=== PATIENT | female | born 1970 | race Caucasian/White ===

== ENCOUNTER 2018-10-08 08:05 | Outpatient (CLI) | payer BC, SELFPAY ==
[2018-10-08 09:22] LABS: Cholesterol 203 mg/dL (50-200); HDL Cholesterol 79 mg/dL (40-60); LDL CHOLESTEROL 111 mg/dL (<100); Triglyceride 59 mg/dL (30-150)
== END 2018-10-08 08:25 ==
PROVIDERS: PCP Registered Nurse; Visit Provider Registered Nurse
DX: Z00.00 Encounter for general adult medical examination without abnormal findings (principal); Z13.220 Encounter for screening for lipoid disorders
CPT/HCPCS: 36415; 80061; 83721

== ENCOUNTER 2020-10-28 15:29 | Emergency (ER) | payer BC, SELFPAY ==
[2020-10-28] VITALS (15 sets, daily range): BP systolic 101–145; BP diastolic 56–99; PULSE 69–90; RESP 10–21; TEMP 36.5; O2SAT 95–100
--- NOTE | 2020-10-28 15:30 | RT.EKG_ITS ---
APPROVED REPORT Exam: Resting ECG Reason for Exam: dizziness Patient Location: E HR:76 bpm ECG Measurements Heart Rate 76 AXIS LA 148 P -88 QRSd 103 QRS 60 QT 395 T 8 QTc 443 Conclusion Sinus or ectopic atrial rhythm...P axis (-45,135). No STEMI. I have reviewed and interpreted ECG and agree with software generated interpretation.
--- NOTE | 2020-10-28 15:30 | W.ED.GENAD ---
Discharge Plan Disposition Patient Disposition: HOME Condition: Improving Discharge Details Clinical Impression: Vomiting, Dizziness Primary Care Provider: Des Pop ED Provider: Kaya Gómez Home Meds and New Rx's Prescriptions: New ondansetron 4 mg tablet,disintegrating 4 mg PO TID PRN (Reason: nausea and vomiting) Qty: 6 RF: 0 Continued loratadine [Claritin] 10 MG tablet 10 mg PO PRN Qty: 1 RF: 0 sertraline [Zoloft] 25 mg Tablet 25 mg PO DAILY RF: 0 Discharge Instructions Instructions: Acute Nausea and Vomiting (ED), Dizziness (ED) Additional Instructions: Take your Pepcid that you have at home once daily for the next 2 weeks. Take the Zofran as needed directed for nausea and vomiting. Follow-up with your primary care doctor in 1 week. Return to the emergency department with any worsening or new concerning symptoms such as fever, persistent vomiting, abdominal pain or any other concerns. Discharge Data Discharge Physician: Kaya Gómez Medical Decision Making [id number] -- 50-year-old female presents with vomiting since last night. She drank 8 twisted teas and one buzz ball yesterday. EKG on arrival notes a rate of 76, sinus, no STEMI, non-diagnostic. Patient appears anxious and hyperventilating on my evaluation. Blood pressure hypertensive at 145/99. She is afebrile and appears nontoxic. Suspect most likely vomiting in the setting of GI related illness, possibly secondary to alcohol. Do not see indication for imaging as she denies any abdominal pain and is only tender in her epigastrium which would be expected and vomiting. We will place an IV, bolus IV fluids, screening labs, chest x-ray and give Pepcid, Zofran IV and GI cocktail and reassess. Labs and imaging reviewed and unremarkable. Normal white blood cell count. Normal electrolytes. Normal troponin. Normal lipase. Alcohol level 5. Chest x-ray negative. Patient reassessed and she states she feels much better. She was able to drink leann frank and eat crackers and denies any nausea or seen. She was able to ambulate without dizziness. Patient felt good to go home. Disposition decision made weighing the risks and benefits of hospitalization versus outpatient treatment, the risk for further decompensation, and the patient's wishes. Advised to follow up with the primary care doctor for re-evaluation. Usual and customary return precautions given prior to discharge. Medical Records Medical records reviewed: Yes I reviewed the patient's medical records. Lab Data Lab results reviewed: Yes I reviewed the patient's lab results. Labs: Laboratory Tests Range/Units 10/28/20 10/28/20 10/28/20 15:40 15:40 15:40 WBC (4.4-10.8) 10^3/uL 5.19 RBC (3.93-5.22) 10^6/uL 4.12 Hgb (11.2-15.7) g/dL 13.4 Hct (36.0-46.0) % 39.1 MCV (80-95) fL 94.9 MCH (27.0-33.0) pg 32.5 MCHC (32.0-36.0) % 34.3 RDW (11.7-14.6) % 13.6 Plt Count (130-400) 10^3/uL 362 MPV (8.0-11.0) fL 8.6 Immature Gran % 0.6 Neutrophils % 72.2 Lymphocytes % 22.0 Monocytes % 4.2 Eosinophils % 0.8 Basophils % 0.2 Nucleated RBC % % 0 Absolute Neutrophils (1.2-6.7) 10^3/uL 3.75 Absolute Lymphocytes (1.2-3.4) 10^3/uL 1.14 L Absolute Monocytes (0.1-0.8) 10^3/uL 0.22 Absolute Eosinophils (0.0-0.7) 10^3/uL 0.04 Absolute Basophils (0.0-0.2) 10^3/uL 0.01 PT (9.3-11.0) sec 9.3 INR (0.9-1.1) 0.9 APTT (21.0-27.5) sec 23.0 Sodium (136-145) mmol/L 140 Potassium (3.5-5.1) mmol/L 3.6 Chloride (98-107) mmol/L 105 Carbon Dioxide (21.0-32.0) mmol/L 26.5 Anion Gap (3-11) mmol/L 8.5 BUN (7-18) mg/dL 11 Creatinine (0.55-1.02) mg/dL 0.8 Estimated GFR/1.73 m2 (mL/min/1.73m2) >= 60.00 Glucose (74-106) mg/dL 105 Calcium (8.5-10.1) mg/dL 9.5 Magnesium (1.8-2.4) mg/dL 2.1 Total Bilirubin (0.2-1.0) mg/dL 0.4 AST (15-37) U/L 20 ALT (14-59) U/L 25 Alkaline Phosphatase (46-116) U/L 97 Troponin I (<0.06) ng/mL < 0.05 Total Protein (6.4-8.2) g/dL 8.6 H Albumin (3.4-5.0) g/dL 4.1 Lipase (73-393) U/L 62 Ethyl Alcohol (<3) mg/dL Range/Units 10/28/20 15:40 WBC (4.4-10.8) 10^3/uL RBC (3.93-5.22) 10^6/uL Hgb (11.2-15.7) g/dL Hct (36.0-46.0) % MCV (80-95) fL MCH (27.0-33.0) pg MCHC (32.0-36.0) % RDW (11.7-14.6) % Plt Count (130-400) 10^3/uL MPV (8.0-11.0) fL Immature Gran % Neutrophils % Lymphocytes % Monocytes % Eosinophils % Basophils % Nucleated RBC % % Absolute Neutrophils (1.2-6.7) 10^3/uL Absolute Lymphocytes (1.2-3.4) 10^3/uL Absolute Monocytes (0.1-0.8) 10^3/uL Absolute Eosinophils (0.0-0.7) 10^3/uL Absolute Basophils (0.0-0.2) 10^3/uL PT (9.3-11.0) sec INR (0.9-1.1) APTT (21.0-27.5) sec Sodium (136-145) mmol/L Potassium (3.5-5.1) mmol/L Chloride (98-107) mmol/L Carbon Dioxide (21.0-32.0) mmol/L Anion Gap (3-11) mmol/L BUN (7-18) mg/dL Creatinine (0.55-1.02) mg/dL Estimated GFR/1.73 m2 (mL/min/1.73m2) Glucose (74-106) mg/dL Calcium (8.5-10.1) mg/dL Magnesium (1.8-2.4) mg/dL Total Bilirubin (0.2-1.0) mg/dL AST (15-37) U/L ALT (14-59) U/L Alkaline Phosphatase (46-116) U/L Troponin I (<0.06) ng/mL Total Protein (6.4-8.2) g/dL Albumin (3.4-5.0) g/dL Lipase (73-393) U/L Ethyl Alcohol (<3) mg/dL 5.3 ECG Data Attestation: I personally reviewed and interpreted this ECG (s) as follows: Interpretation: Rate of 76, sinus, no acute ST elevation or depression. HPI General Mode of arrival: ambulatory. Date/Time Provider Initiated Documentation: 10/28/20 15:30. Limitations to Documentation: no limitations. Information obtained by: patient. HPI Narrative: Patient is a 50-year-old female with a history of anxiety and depression anticoagulation presents to the ED with complaint of vomiting midnight last night. She also complains of dizziness upon standing. Patient states she had 8 twisted teas and 1 buzz ball alcoholic drink last night. She states she had chicken salad for dinner. She states she went to bed around 11:00 feeling fine and then awoke suddenly with vomiting. She states she vomited between 5-10 times which is mainly been yellow and clear. She denies any fever, chest pain, shortness of breath, abdominal pain, urinary symptoms or diarrhea. She denies any recent travel, recent antibiotics or known sick contacts. Related Data Home Medications Medication Instructions Recorded Confirmed loratadine [Claritin] 10 mg PO PRN #1 02/15/15 10/28/20 ondansetron 4 mg PO TID PRN #6 tab 10/28/20 sertraline [Zoloft] 25 mg PO DAILY 10/28/20 10/28/20 Previous Rx's Medication Instructions Recorded ondansetron 4 mg PO TID PRN #6 tab 10/28/20 Allergies Allergy/AdvReac Type Severity Reaction Status Date / Time ciprofloxacin HCl AdvReac Intermediate Swelling Unverified 10/28/20 15:40 [From Cipro] Environmental Allergy Intermediate Runny Uncoded 10/28/20 15:40 nose, itchy, water eyes Review of Systems All systems reviewed & are unremarkable except as noted in HPI and below Constitutional Constitutional: Reports as per HPI, Denies chills and Denies fever(s) Eyes Eyes: Denies blurry vision ENT Ears, Nose, Mouth, and Throat: Denies dizziness, Denies sore throat and Denies throat swelling Cardiovascular Cardiovascular: Denies chest pain and Denies dyspnea Respiratory Respiratory: Denies cough and Denies dyspnea Gastrointestinal Gastrointestinal: Denies abdominal pain, Denies diarrhea and Reports vomiting Genitourinary Genitourinary: Denies hematuria and Denies dysuria Musculoskeletal Musculoskeletal: Denies back pain and Denies numbness Integumentary/Breasts Skin/Breast: Denies lesions and Denies rash Neurologic Neurologic: Denies dizziness, Denies localized weakness and Denies numbness Allergic/Immunologic Allergic/Immunologic: Denies throat swelling PFSH Medical History (Updated 10/28/20 @ 17:14 by Kaya Gómez DO) Anxiety Depression Surgical History (Updated 10/28/20 @ 15:54 by Kaya Gómez DO) History of bilateral tubal ligation Social History Smoking/Tobacco Use Status: Former Tobacco Use Smoking risk assessment performed?: Yes Alcohol Intake: current Alcohol type: other Drug use: Daily Substance use type: marijuana Details: pt states that she had 6 twisted tea yesterdAY Do you feel safe at home: Yes Do you feel safe in your relationship?: Yes Exam Const General: cooperative, healthy appearing and no acute distress [facility] Head: normal to inspection Face and sinus: normal facial exam Eyes General: appearance normal, both eyes and all related structures EOM: EOM intact bilaterally Neck Neck: normal visual inspection and No submandibular swelling Lymphatic: no lymphadenopathy noted Chest Chest: normal inspection of the chest and no tenderness Resp Effort & Inspection: normal respiratory effort and able to speak in complete sentences Auscultation: clear to auscultation bilaterally Cardio Rate: regular rate Rhythm: regular rhythm GI Inspection: normal to inspection Palpation: soft, not firm, not rigid and tender in the epigastrum Auscultation: normal bowel sounds Skin General skin exam: no rashes or lesions noted Neuro General: patient alert, patient awake and patient oriented x3 Cognition: normal cognition Speech: speech normal Motor: muscle tone normal throughout Sensory Exam: no sensory deficits noted Extrem General: normal to inspection, full ROM, capillary refill normal, no calf tenderness bilaterally and no edema Psych Appearance: grossly normal Mental Status: mental status grossly normal Speech and Movement: speech and movement normal Affect: normal affect
[2020-10-28] MEDS: Normal Saline Flush 10 ML SYR IVP (15:40)
[2020-10-28] MEDS: Normal Saline 1,000 ML 1000 ML IV (15:45)
--- NOTE | 2020-10-28 15:45 | DI.RAD_ITS ---
Exam(s) XR PORTABLE CHEST AP EXAM: XR PORTABLE CHEST AP CLINICAL HISTORY: dizziness, vomiting, r/o acute disease TECHNIQUE: 2D digital imaging was performed. COMPARISON: No exams were available for comparison FINDINGS: MEDIASTINUM: Normal. HEART: Normal. PULMONARY VASCULATURE: Normal. LUNGS: Clear. PLEURAL SPACE: No pleural effusion or pneumothorax. BONE:Within normal limits for the patient's age. There is a mild S-type thoracic scoliosis. OTHER FINDINGS:Normal. IMPRESSION: No acute pulmonary findings. DATA REPOSITORY: RADIATION DOSE DELIVERED:
[2020-10-28] MEDS: Ondansetron 4 MG/2 ML VIAL IVP (15:50)
[2020-10-28] MEDS: FAMOTIDINE 20 MG/50 ML BAG 200 MG IVPB (15:55)
[2020-10-28 15:56] LABS: Abs Immature Grans 0.03 10^3/uL (0.0-0.06); Absolute Basophil Count 0.01 10^3/uL (0.0-0.2); Absolute Eosinophil Count 0.04 10^3/uL (0.0-0.7); Absolute Lymphocyte Count 1.14 10^3/uL (1.2-3.4); Absolute Monocyte Count 0.22 10^3/uL (0.1-0.8); Absolute Neutrophil Count 3.75 10^3/uL (1.2-6.7); Basophils % 0.2; Eosinophils % 0.8; HCT 39.1 % (36.0-46.0); HGB 13.4 g/dL (11.2-15.7); Immature Grans % 0.6; MCH 32.5 pg (27.0-33.0); MCHC 34.3 % (32.0-36.0); MCV 94.9 fL (80-95); MPV 8.6 fL (8.0-11.0); Monocytes % 4.2; Neutrophils % 72.2; Nucleated RBC 0 %; Platelet Count 362 10^3/uL (130-400); RBC 4.12 10^6/uL (3.93-5.22); RDW 13.6 % (11.7-14.6); RDW-SD 47.8 fL; WBC 5.19 10^3/uL (4.4-10.8)
[2020-10-28 16:07] LABS: ETHANOL BLOOD 5.3 mg/dL (<3); INR 0.9 (0.9-1.1); Prothrombin Time 9.3 sec (9.3-11.0)
[2020-10-28 16:12] LABS: ALT 25 U/L (14-59); AST 20 U/L (15-37); Albumin 4.1 g/dL (3.4-5.0); Alkaline Phosphatase 97 U/L (46-116); Anion Gap 8.5 mmol/L (3-11); BUN 11 mg/dL (7-18); Bilirubin, Total 0.4 mg/dL (0.2-1.0); CO2 26.5 mmol/L (21.0-32.0); CREATININE 0.8 mg/dL (0.55-1.02); Calcium 9.5 mg/dL (8.5-10.1); Chloride 105 mmol/L (98-107); Glucose 105 mg/dL (74-106); Lipase 62 U/L (73-393); Magnesium 2.1 mg/dL (1.8-2.4); Potassium 3.6 mmol/L (3.5-5.1); Sodium 140 mmol/L (136-145); Total Protein 8.6 g/dL (6.4-8.2); Troponin I < 0.05 ng/mL (<0.06)
--- NOTE | 2020-10-28 16:50 | DI.VRAD_ITS ---
PROCEDURE INFORMATION: Exam: XR Chest Exam date and time: 10/28/2020 3:53 PM Age: 50 years old Clinical indication: Other: Dizzy TECHNIQUE: Imaging protocol: XR of the chest. Views: 1 view. Other technique: Portable exam. COMPARISON: No relevant prior studies available. FINDINGS: Lungs: Unremarkable. No consolidation. Pleural spaces: Unremarkable. No pleural effusion. No pneumothorax. Heart/Mediastinum: Unremarkable. No cardiomegaly. Bones/joints: Unremarkable. IMPRESSION: No evidence for acute abnormality in the chest. Dictated and Authenticated by: Jazmyne Carias MD. Ordering:MELISSA Kirkpatrick MD
[2020-10-28] MEDS: Ondansetron O.D.T. 4 MG TABEF, 3 TABS/BTL PO (17:20)
== END 2020-10-28 17:25 | disposition home or self-care (01) ==
LOC: ER 17:24
PROVIDERS: Emergency Provider Physician Assistant; PCP Neuromusculoskeletal Medicine & OMM
DX: R11.10 Vomiting, unspecified (principal); R42 Dizziness and giddiness
CPT/HCPCS: 36415; 80053; 83690; 93005; 96361; 96365; 96375; 99284; 71045; 80320; 83735; 84484; 85025; 85610; 85730; 93010; 99283; J2405